=== PATIENT | male | born 1990 | race Caucasian/White ===

== ENCOUNTER → 2022-05-11 13:30 | Outpatient (BNVA) | payer OTHER, SELFPAY | PROVIDERS: Visit Provider Nurse Practitioner | DX: M25.511 Pain in right shoulder (principal) | CPT/HCPCS: 73030 ==

== ENCOUNTER → 2022-05-12 13:46 | Outpatient (BNVA) | payer OTHER, SELFPAY | PROVIDERS: Visit Provider Nurse Practitioner | DX: Z02.83 Encounter for blood-alcohol and blood-drug test (principal); M25.511 Pain in right shoulder | CPT/HCPCS: 80307 ==

== ENCOUNTER 2022-06-02 11:44 | Outpatient (CLI) | payer OTHER, SELFPAY ==
--- NOTE | 2022-06-02 12:30 | MR_ITS ---
WS: [id number] MRI RIGHT SHOULDER HISTORY: S49.90XA - Unspecified injury of shoulder and upper arm, lifting injury 1 month ago. Unable to raise arm above head. COMPARISON: Shoulder radiograph 05/11/2022. TECHNIQUE: Multiplanar sequences of the shoulder joint are submitted. Mild AC joint arthritis. There is a small amount of fluid through the AC joint and mild thickening of the capsule. Small amount of fluid in the inferior most AC joint. Mild encroachment upon the anterio r supraspinatus muscle. 3 mm osteophyte from the distal acromion inferior surface causing mild subacr omial impingement. No os acromion. The biceps tendon remains in normal position. Small amount of marrow edema in the posterior lateral humeral head. No fracture or dislocation. No mu scle atrophy or edema. No tendon tear or tendinopathy involving the rotator cuff muscles. Normal labr um. MR/MR shoulder RT wo con* [id number] IMPRESSION: 1. Mild AC joint sprain. Partial tear suspected involving the inferior most AC ligament. 2. No rotator cuff tear or significant tendinopathy. 3. Focal area of subchondral edema in the posterior lateral humeral head. 4. No labral tear. 5. Biceps tendon in normal position. 6. Mild subacromial impingement by an osteophyte from the distal undersurface of the acromion.
== END 2022-06-02 11:45 | disposition home or self-care (01) ==
PROVIDERS: PCP Nurse Practitioner Family; Visit Provider Nurse Practitioner
DX: S43.51XA Sprain of right acromioclavicular joint, initial encounter (principal); X50.0XXA Overexertion from strenuous movement or load, initial encounter
CPT/HCPCS: 73221

== ENCOUNTER → 2022-06-16 10:57 | Outpatient (BNVA) | payer OTHER, SELFPAY | PROVIDERS: PCP Nurse Practitioner Family; Referring Provider Nurse Practitioner; Visit Provider Physician Assistant | DX: M25.511 Pain in right shoulder (principal) | CPT/HCPCS: 73030 ==

== ENCOUNTER 2023-12-20 19:50 | Emergency (ER) | payer MEDICAID, SELFPAY ==
[2023-12-20 19:53] VITALS: BP 122/69; PULSE 90; RESP 16; TEMP 36.4; O2SAT 97
--- NOTE | 2023-12-20 20:23 | W.ED.EXTPRO ---
HPI - Extremity Problem General: Chief complaint: Extremity Injury, Lower Stated complaint: Right knee Time Seen by Provider: 12/20/23 19:52 Source: patient Mode of arrival: ambulatory Limitations: no limitations History of Present Illness: 33-year-old male who states he was running states he stepped and felt a pop in his right knee he seen at [facility] yesterday and had a CT done of his knee that showed no fracture he states he is concerned he tore ligaments he is not able to ambulate or bear weight on that leg and wants an MRI. Associated symptoms: Deny chest pain, fever(s) or rash Review of Systems Const: Denies: fever(s), chills, body aches or change in appetite Eyes: Denies: blurry vision or eye discomfort ENMT: Denies: throat pain or dental pain Card: Denies: chest pain Resp: Denies: dyspnea GI: Denies: abdominal pain, nausea, vomiting or diarrhea Musc: Reports: extremity pain; Denies: neck pain or back pain Skin/Breast: Denies: rash Neuro: Denies: headache(s) PFSH ED PFSH: Social History Smoking and tobacco/nicotine status: never used tobacco/nicotine Physical Exam Const: COMMON NORMALS: no acute distress, patient oriented x3 and healthy appearing HENMT: COMMON NORMALS: normocephalic and atraumatic HEAD & SCALP: normocephalic and atraumatic Eye: COMMON NORMALS: conjunctivae normal CONJUNCTIVA: Yes conjunctivae normal Neck/C-Spine: COMMON NORMALS: full ROM and supple Chest: COMMONS NORMALS: normal inspection of the chest Resp: COMMON NORMALS: normal respiratory effort Cardio: COMMON NORMALS: regular rate, regular rhythm and No murmurs present (Cardio) RATE: regular rate RHYTHM: regular rhythm Extremity: NARRATIVE EXTREMITY EXAM: Swelling to right knee along with tenderness Neuro: COMMON NORMALS: patient oriented x3, moves all extremities and no focal motor deficits Psych: COMMON NORMALS: mental status grossly normal, Normal thought process present and cooperative THOUGHT PROCESS: Normal thought process present Skin: COMMON NORMALS: no rashes or lesions noted and no wounds GENERAL SKIN EXAM: no rashes or lesions noted Course Vital Signs: Vital signs: Vital Signs Temperature 97.6 F 12/20/23 19:53 Pulse Rate 90 12/20/23 19:53 Respiratory Rate 16 12/20/23 19:53 Blood Pressure 122/69 12/20/23 19:53 Pulse Oximetry 97 12/20/23 19:53 MDM - Extremity (Nontraumatic) Medical Decision Making Patient presents here with a knee sprain he refused x-ray here as he has had a CT he already has a knee brace he refused a knee immobilizer he has crutches he is to be nonweightbearing we will get him follow-up with orthopedics. Patient was requesting MRI I did explain to him that was not able to do an MRI of his knee through the ER that he is to follow-up with orthopedics first. Medical Records I reviewed the patient's medical records. No radiology studies performed this visit Discharge Plan Discharge Patient Disposition: Home Clinical Impression: Knee sprain Condition: Stable Prescriptions: No Action ketorolac 10 mg tablet 10 mg PO TID PRN (Reason: pain) 5 Days Qty: 15 0RF Discharge Orders: Discharge ED (Routine); Ordered 12/20/23 Ordered By: Charles Mccall Referrals: Geronimo Lnog DO [Physician] - 1-3 days Discharge Diet: Advance as tolerated Discharge Activity: Resume usual activity Patient Instructions: Knee Sprain (ED) Coding Level of Care Code ED Computer Systems Security Administrator for Ceci Car
[2023-12-20 20:41] VITALS: PULSE 60; O2SAT 98
--- NOTE | 2023-12-21 07:33 | DCPLANNER ---
Message was sent to ortho (Dr. Long) for a knee sprain on 12/21/23 at 0720. Clinic to contact patient.
== END 2023-12-20 20:42 | disposition home or self-care (01) ==
PROVIDERS: Emergency Provider Emergency Medicine
DX: S83.91XA Sprain of unspecified site of right knee, initial encounter (principal); X50.9XXA Other and unspecified overexertion or strenuous movements or postures, initial encounter; Y93.02 Activity, running
CPT/HCPCS: 99283

== ENCOUNTER 2023-12-25 11:31 | Emergency (ER) | payer MEDICAID, SELFPAY ==
[2023-12-25 11:51] VITALS: BP 127/84; PULSE 84; RESP 16; TEMP 36.7; O2SAT 97; BMI 23.7
--- NOTE | 2023-12-25 12:25 | XRR_ITS ---
PROCEDURE INFORMATION: Exam: XR Right Knee Exam date and time: 12/25/2023 12:46 PM Age: 33 years old Clinical indication: Pain; Knee; Right; Additional info: Injury TECHNIQUE: Imaging protocol: Radiologic exam of the right knee. Views: 3 views. COMPARISON: No relevant prior studies available. FINDINGS: Bones/joints: No significant pathology. Soft tissues: Normal. No joint effusion evident. XR/XR knee RT 3V* [id number] IMPRESSION: No significant pathology.
[2023-12-25 13:22] VITALS: PULSE 82; RESP 14; O2SAT 97
--- NOTE | 2023-12-25 13:33 | W.ED.LOWEXIN ---
HPI - Extremity Injury (Lower) General: Chief Complaint: Extremity Injury, Lower Stated Complaint: right knee pain Time Seen by Provider: 12/25/23 13:21 Source: patient Mode of arrival: ambulatory Limitations: no limitations History of Present Illness: Patient is a 33-year-old male who presents to ED today for evaluation of a right knee injury. Patient states about a week ago he injured the right knee via a planting/pivoting injury. He was subsequently seen at [facility] ED and had a CT scan performed of the knee which did not show any fracture. He was told he most likely had a ligamentous injury and was referred to orthopedics. Patient was then subsequently seen in our emergency department the next day requesting an MRI. Patient currently has an orthopedic visit scheduled for 01/05. Patient is here today again requesting an MRI and refills on his pain medications. complaint: knee injury Onset (ago): day(s) Injury: Right: knee Place: home Severity: moderate Relieving factors: immobilization Exacerbating factors: weight bearing and movement Associated symptoms: Reports no associated symptoms Other symptoms: none Treatments prior to arrival: splint (knee immobilizer) Review of Systems Card: Denies: chest pain Resp: Denies: dyspnea Musc: Reports: joint pain (R knee) and joint swelling (R knee); Denies: neck pain, back pain, extremity pain, extremity swelling, joint redness or joint warmth Neuro: Denies: numbness in extremities or sensory changes [facility] ED PFSH: Social History Smoking and tobacco/nicotine status: never used tobacco/nicotine Physical Exam Const: COMMON NORMALS: no acute distress, average body habitus, patient oriented x3, no limitations, healthy appearing, alert and well nourished Resp: COMMON NORMALS: normal respiratory effort and clear to auscultation bilaterally AUSCULTATION: clear to auscultation bilaterally Cardio: COMMON NORMALS: regular rate and regular rhythm RATE: regular rate RHYTHM: regular rhythm Extremity: COMMON NORMALS: normal to inspection, capillary refill normal, no clubbing, cyanosis or edema, no calf tenderness and no pedal edema GENERAL: Yes normal exam except as noted RIGHT LOWER EXTREMITY: Yes knee joint (TTP medial R knee joint) Right knee: Yes palpation (mild effusion noted) and Yes neurovascular exam (normal) Neuro: COMMON NORMALS: patient oriented x3, moves all extremities, no focal motor deficits and no sensory deficits noted SENSORIUM/ORIENTATION: Yes alert Course Vital Signs: Vital signs: Vital Signs Temperature 98.0 F 12/25/23 11:51 Pulse Rate 82 12/25/23 13:22 Respiratory Rate 14 12/25/23 13:22 Blood Pressure 124/79 12/25/23 13:42 Pulse Oximetry 98 12/25/23 13:42 Oxygen Delivery Me thod Room Air 12/25/23 13:22 MDM - Extremity Injury (Lower) Medical Decision Making XR ordered from triage negative for acute fracture. Knee is already in ROBERT wrap/knee knee immobilizer/patient is utilizing crutches. He already has an orthopedic appointment scheduled for 01/05. Explained yet again we cannot order nonemergent MRIs through the ED. He is requesting refill on pain meds. He got 9 oxycodone from [id number] on 12/19 on date of initial injury and he has one tab left in bottle on today's visit. Will write for hydrocodone that he can continue to use sparingly. Differential Diagnosis Likely ankle sprain and strain and acute internal derangement of knee XR interpretation done by ED provider, pending radiology final review Discharge Plan Discharge Patient Disposition: Home Clinical Impression: Injury of right knee Qualifiers: Encounter type: initial encounter Qualified Code(s): S89.91XA - Unspecified injury of right lower leg, initial encounter Condition: Stable Prescriptions: New hydrocodone-acetaminophen 5-325 mg tablet 1 tab PO Q6H PRN (Reason: pain) Qty: 14 0RF No Action ketorolac 10 mg tablet 10 mg PO TID PRN (Reason: pain) 5 Days Qty: 15 0RF Discharge Orders: Discharge ED (Routine); Ordered 12/25/23 Ordered By: Jaki Johns Patient Instructions: Opioid Safety, Pain Management Activity Restrictions/Additional Instructions: As we discussed please follow-up with orthopedics at your currently scheduled appointment. This is currently scheduled for 01/05 at 9:30AM. Coding Level of Care Code ED Security Rover for Ceci Car
[2023-12-25 13:42] VITALS: BP 124/79; O2SAT 98
== END 2023-12-25 13:43 | disposition home or self-care (01) ==
PROVIDERS: Emergency Provider Physician Assistant
DX: S89.91XA Unspecified injury of right lower leg, initial encounter (principal); M25.461 Effusion, right knee; X50.1XXA Overexertion from prolonged static or awkward postures, initial encounter
CPT/HCPCS: 73562; 99283

== ENCOUNTER → 2024-01-05 09:47 | Outpatient (BNVA) | payer MEDICAID, SELFPAY | PROVIDERS: Visit Provider Nurse Practitioner | DX: M25.561 Pain in right knee; M23.51 Chronic instability of knee, right knee; S83.206A Unspecified tear of unspecified meniscus, current injury, right knee, initial encounter; S89.91XA Unspecified injury of right lower leg, initial encounter; X50.9XXA Other and unspecified overexertion or strenuous movements or postures, initial encounter | CPT/HCPCS: 73560; 73565 ==

== ENCOUNTER 2024-01-13 17:26 | Emergency (ER) | payer MEDICAID, SELFPAY ==
[2024-01-13 17:38] VITALS: BP 132/76; PULSE 101; RESP 19; TEMP 37.5; O2SAT 97; BMI 25.2
--- NOTE | 2024-01-13 17:53 | XRR_ITS ---
PROCEDURE INFORMATION: Exam: XR Chest Exam date and time: 01/13/2024 6:36 PM Age: 33 years old Clinical indication: Cough and fever; Patient HX: Cough; Fever TECHNIQUE: Imaging protocol: Radiologic exam of the chest. Views: 1 view. COMPARISON: CR XR shoulder RT min 2V* [id number] 06/16/2022 10:58 AM FINDINGS: Lungs: Unremarkable. No consolidation. Pleural spaces: Unremarkable. No pleural effusion. No pneumothorax. Heart/Mediastinum: Unremarkable. No cardiomegaly. Bones/joints: Unremarkable. XR/XR chest 1V portable [id number] IMPRESSION: No acute findings.
[2024-01-13 18:35] LABS: Influenza A by IFA negative (Negative); Influenza B by IFA negative (Negative); SARS Covid-2 Antigen negative (Negative)
[2024-01-13 19:00] VITALS: BP 131/77; O2SAT 99
--- NOTE | 2024-01-13 19:12 | W.ED.URI ---
HPI - URI/Sore Throat General: Chief Complaint: Upper Respiratory Infection Stated Complaint: fever, cough Time Seen by Provider: 01/13/24 18:00 Source: patient Mode of arrival: ambulatory Limitations: no limitations History of Present Illness: 33-year-old male states that over the last days had cough congestion body aches and sore throat mild headache. He states he had multiple sick contacts with his family had similar symptoms. Denies any vomiting denies any diarrhea. 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 Social History Smoking and tobacco/nicotine status: never used tobacco/nicotine Physical Exam Const: COMMON NORMALS: no acute distress, patient oriented x3 and healthy appearing HENMT: COMMON NORMALS: normocephalic and atraumatic HEAD & SCALP: normocephalic and atraumatic MOUTH: Normal oral and palatal mucosa present THROAT: posterior oropharynx normal Eye: COMMON NORMALS: conjunctivae normal CONJUNCTIVA: Yes conjunctivae normal Neck/C-Spine: COMMON NORMALS: full ROM and supple Chest: COMMONS NORMALS: normal inspection of the chest and normal palpation of entire chest wall Resp: COMMON NORMALS: normal respiratory effort, No retractions, No use of accessory muscles and clear to auscultation bilaterally AUSCULTATION: clear to auscultation bilaterally Cardio: COMMON NORMALS: regular rate, regular rhythm and No murmurs present (Cardio) RATE: regular rate RHYTHM: regular rhythm Extremity: COMMON NORMALS: normal to inspection and full ROM Neuro: COMMON NORMALS: patient oriented x3, moves all extremities and no focal motor deficits Psych: COMMON NORMALS: mental status grossly normal, Normal thought process present and cooperative THOUGHT PROCESS: Normal thought process present Skin: COMMON NORMALS: no rashes or lesions noted and no wounds GENERAL SKIN EXAM: no rashes or lesions noted Course Vital Signs: Vital signs: Vital Signs Temperature 99.5 F 01/13/24 17:38 Pulse Rate 101 H 01/13/24 17:38 Respiratory Rate 19 H 01/13/24 17:38 Blood Pressure 131/77 01/13/24 19:00 Pulse Oximetry 99 01/13/24 19:00 Oxygen Delivery Me thod Room Air 01/13/24 19:00 MDM - URI/Sore Throat Medical Decision Making Patient presents here with upper respiratory infection likely viral in origin x-ray shows no pneumonia he is well-appearing here we will get a respiratory panel did give him Decadron Toradol he stable for discharge return if worsening he understands agrees to plan Medical Records I reviewed the patient's medical records. Lab Data I reviewed the patient's lab results. Laboratory Results Influenza Type A Ag negative (Negative) 01/13/24 17:45 Influenza Type B Ag negative (Negative) 01/13/24 17:45 SARS-CoV-2 Ag (Rapid) negative (Negative) 01/13/24 17:45 XR interpretation done by ED provider, pending radiology final review ED provider radiology interpretation(s): cxr no acute abnormalities Discharge Plan Discharge Patient Disposition: Home Clinical Impression: Upper respiratory infection Condition: Stable Prescriptions: No Action ketorolac 10 mg tablet 10 mg PO TID PRN (Reason: pain) 5 Days Qty: 15 0RF hydrocodone-acetaminophen 5-325 mg tablet 1 tab PO Q6H PRN (Reason: pain) Qty: 14 0RF Discharge Orders: Discharge ED (Routine); Ordered 01/13/24 Ordered By: Charles Mccall Referrals: Lena Zacarias MD [Primary Care Provider] - Discharge Diet: Advance as tolerated Discharge Activity: Resume usual activity Patient Instructions: Upper Respiratory Infection (ED) Coding Level of Care Code ED Attorney Recruiter for Ceci Car
[2024-01-13] MEDS: dexamethasone 10 mg/mL INJ IM (19:15)
[2024-01-13] MEDS: ketorolac 60 mg/2 mL INJ IM (19:15)
[2024-01-13 19:23] VITALS: BP 138/68; RESP 14
[2024-01-13 23:07] LABS: Adenovirus Not Detected (NOT DETECT); Chlamydia Pneumoniae Not Detected (NOT DETECT); Coronavirus 229E,HKU1,NL63,OC4 Not Detected (NOT DETECT); Human Metapneumovirus Not Detected (NOT DETECT); Human Rhinovirus/Enterovirus Not Detected (NOT DETECT); Influenza A Not Detected (NOT DETECT); Influenza A H1 Not Detected (NOT DETECT); Influenza A H1-2009 Not Detected (NOT DETECT); Influenza A H3 Not Detected (NOT DETECT); Influenza B Detected (NOT DETECT); Mycoplasma Pneumoniae Not Detected (NOT DETECT); Parainfluenza Virus Type 1 Not Detected (NOT DETECT); Parainfluenza Virus Type 2 Not Detected (NOT DETECT); Parainfluenza Virus Type 3 Not Detected (NOT DETECT); Parainfluenza Virus Type 4 Not Detected (NOT DETECT); Respiratory Syncytial Virus A Not Detected (NOT DETECT); Respiratory Syncytial Virus B Not Detected (NOT DETECT); SARS-COV-2 Not Detected (NOT DETECT)
== END 2024-01-13 19:26 | disposition home or self-care (01) ==
PROVIDERS: Emergency Provider Emergency Medicine; PCP Specialist
DX: J06.9 Acute upper respiratory infection, unspecified (principal); Z11.52 Encounter for screening for COVID-19
CPT/HCPCS: 71045; 87426; 87486; 87581; 87633; 87804; 96372; 99284; J1100; J1885

== ENCOUNTER 2024-01-17 08:00 | Emergency (ER) | payer MEDICAID, SELFPAY ==
--- NOTE | 2024-01-17 08:05 | XR_ITS ---
WS: [id number] Examination: XR chest 1V portable [id number] Reason for Exam: dyspnea/cough Date: January 17, 2024 Comparison: January 13, 2024 Findings: The cardiomediastinal silhouette is within normal limits There is no pulmonary congestion. There is no pleural effusion. No dense consolidation is identified. Impression: No acute lung process seen.
[2024-01-17 08:15] VITALS: BP 122/86; PULSE 91; TEMP 37.1; O2SAT 97; BMI 25.2
[2024-01-17 08:32] LABS: Basophils % 0.4 %; Eosinophils % 0.2 %; Hematocrit 46.1 % (37-53); Lymphocytes % 20.4 %; Mean Corpuscular HGB Conc 34.5 g/dL (30-55); Mean Corpuscular Hemoglobin 31.5 pg (27-33); Mean Corpuscular Volume 91.5 fl (82-101); Mean Platelet Volume 9.2 fL (7.4-10.4); Monocytes # 0.7 10^3/uL (0.2-0.9); Monocytes % 12.9 %; Neutrophils # 3.31 10^3/uL (1.8-7.7); Neutrophils % 65.7 %; Nucleated Red Blood Cells % 0 %; Platelet Count 182 10^3/cmm (157-399); Red Blood Count 5.04 10^6/uL (3.85-5.65); Red Cell Distribution Width 11.5 % (12.1-15.1); White Blood Count 5.04 10^3/uL (3.29-11.43)
[2024-01-17 08:50] LABS: Alanine Aminotransferase 37 U/L (0-41); Albumin Level 4.3 g/dL (3.5-5.2); Alkaline Phosphatase 65 U/L (40-130); Anion Gap 14.3 (5-19); Aspartate Amino Transferase 40 U/L (0-40); Blood Urea Nitrogen 7 mg/dL (6-20); Calcium 8.8 mg/dL (8.5-10.5); Carbon Dioxide 26 mmol/L (22-29); Chloride 97 mmol/L (98-107); Globulin 2.7 g/dL (1.3-4.6); Glomerular Filtration Rate 78.1 mL/min (90-130); Glucose 96 mg/dL (65-115); Osmolality Calculated 274 mOsm/kg (285-295); Potassium 4.3 mmol/L (3.5-5.1); Sodium 133 mmol/L (136-145); Total Bilirubin 0.5 mg/dL (0.15-1.2)
[2024-01-17] MEDS: ondansetron 2 mg/ML SDV 2 mL 4 MG IVP (09:21)
[2024-01-17] MEDS: sodium chloride 0.9% 1,000 ML 999 ML IV (09:22)
--- NOTE | 2024-01-17 09:33 | W.ED.URI ---
HPI - URI/Sore Throat General: Chief Complaint: Upper Respiratory Infection Stated Complaint: Fever, N/V , cough Time Seen by Provider: 01/17/24 08:04 Source: patient Mode of arrival: ambulatory History of Present Illness: 33-year-old male presents emergency room with complaints of shortness of breath sinus congestion for the last few days. Had nausea this morning. Minimally productive cough from postnasal drainage was seen a few days ago and was given Toradol and dexamethasone. He states his symptoms are still persisting. He also had a respiratory panel which was negative. This began having some vomiting this morning. MD elicited complaint: cough Onset (ago): day(s) (3) Consistency: constant Description of mucous: clear Able to tolerate fluids by mouth: Yes Exacerbating factors: nothing Associated symptoms: Reports congestion, cough, fever(s), nasal congestion and sinus pain; Deny abdominal pain, change in voice, chills, chest pain, diarrhea, epistaxis, ear or mastoid pain, headache(s), myalgias, nausea, rash, rhinorrhea, short of breath, stiffness, sore throat or vomiting Treatments prior to arrival: none Review of Systems Const: Reports: fever(s); Denies: chills ENMT: Reports: nasal congestion and sinus pain; Denies: ear or mastoid pain or epistaxis Card: Denies: chest pain Resp: Denies: dyspnea GI: Denies: abdominal pain, nausea, vomiting or diarrhea : Denies: dysuria, urinary frequency or urinary urgency Musc: Denies: neck pain or back pain Skin/Breast: Denies: rash Neuro: Denies: headache(s) PFS ED PFSH: Medical History 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 Social History Smoking and tobacco/nicotine status: never used tobacco/nicotine Physical Exam Const: GENERAL APPEARANCE: cooperative and comfortable ORIENTATION/CONSCIOUSNESS: Yes awake, Yes oriented to person, Yes oriented to place and Yes oriented to time HENMT: COMMON NORMALS: normocephalic, atraumatic and hearing grossly normal bilaterally HEAD & SCALP: normocephalic and atraumatic Resp: COMMON NORMALS: normal respiratory effort, No retractions and No use of accessory muscles AUSCULTATION: rhonchi and wheezes Cardio: COMMON NORMALS: regular rate, regular rhythm and No murmurs present (Cardio) RATE: regular rate RHYTHM: regular rhythm GI: COMMON NORMALS: Soft to palpation and No hepatosplenomegaly present AUSCULTATION: Yes normoactive bowel sounds PALPATION: Yes Soft to palpation, No Tenderness to palpation present (GI), No Guarding due to palpation present (GI) and Yes No hepatosplenomegaly present Extremity: COMMON NORMALS: normal to inspection, capillary refill normal, no clubbing, cyanosis or edema, no calf tenderness and no pedal edema Neuro: SENSORIUM/ORIENTATION: Yes oriented to person, Yes oriented to place and Yes oriented to time Skin: COMMON NORMALS: no rashes or lesions noted GENERAL SKIN EXAM: no rashes or lesions noted Course Vital Signs: Vital signs: Vital Signs Temperature 98.7 F 01/17/24 08:15 Pulse Rate 91 01/17/24 08:15 Blood Pressure 122/86 01/17/24 08:15 Pulse Oximetry 97 01/17/24 08:15 Oxygen Delivery Me thod Room Air 01/17/24 08:15 MDM - URI/Sore Throat Medical Decision Making Reviewed patient's chart he had a PCR test done looks like it was done about the time he was being discharged at his last visit and it resulted after he left it was positive for influenza B on the PCR but the influenza B antigen was negative. At the time he presented on the he reported he had symptoms for several days in either event he would not be a candidate for antivirals either then or today. Symptomatic care is appropriate at this time. He does not have any secondary pneumonias on his chest x-rays laboratory tests otherwise look good can use promethazine as needed for nausea and vomiting albuterol for cough congestion Tylenol or Profen for muscle aches and pain. Differential Diagnosis Likely upper respiratory infection, sinusitis, viral infection, bronchitis, influenza and pharyngitis Medical Records I reviewed the patient's medical records. Lab Data I reviewed the patient's lab results. 01/17/24 08:25 01/17/24 08:25 Laboratory Results WBC 5.04 10^3/uL (3.29-11.43) 01/17/24 08:25 RBC 5.04 10^6/uL (3.85-5.65) 01/17/24 08:25 Hgb 15.90 g/dL (11.27-16.99) 01/17/24 08:25 Hct 46.1 % (37-53) 01/17/24 08:25 MCV 91.5 fl (82-101) 01/17/24 08:25 MCH 31.5 pg (27-33) 01/17/24 08:25 MCHC 34.5 g/dL (30-55) 01/17/24 08:25 RDW 11.5 % (12.1-15.1) L 01/17/24 08:25 Plt Count 182 10^3/cmm (157-399) 01/17/24 08:25 MPV 9.2 fL (7.4-10.4) 01/17/24 08:25 Neut % (Auto) 65.7 % 01/17/24 08:25 Lymph % (Auto) 20.4 % 01/17/24 08:25 [place] % (Auto) 12.9 % 01/17/24 08:25 Eos % (Auto) 0.2 % 01/17/24 08:25 Baso % (Auto) 0.4 % 01/17/24 08:25 Neut # (Auto) 3.31 10^3/uL (1.8-7.7) 01/17/24 08:25 Lymph # (Auto) 1.0 10^3/uL (0.8-4.8) 01/17/24 08:25 [place] # (Auto) 0.7 10^3/uL (0.2-0.9) 01/17/24 08:25 Eos # (Auto) 0.0 10^3/uL (0.0-0.8) 01/17/24 08:25 Baso # (Auto) 0.0 10^3/uL (0.0-0.1) 01/17/24 08:25 Nucleated RBC % (auto) 0 % 01/17/24 08:25 Nucleated RBCs # 0.0 /100WBC 01/17/24 08:25 Sodium 133 mmol/L (136-145) L 01/17/24 08:25 Potassium 4.3 mmol/L (3.5-5.1) 01/17/24 08:25 Chloride 97 mmol/L (98-107) L 01/17/24 08:25 Carbon Dioxide 26 mmol/L (22-29) 01/17/24 08:25 Anion Gap 14.3 (5-19) 01/17/24 08:25 BUN 7 mg/dL (6-20) 01/17/24 08:25 Creatinine 1.1 mg/dL (0.7-1.2) 01/17/24 08:25 GFR Calculation 78.1 mL/min (90-130) L 01/17/24 08:25 Glucose 96 mg/dL (65-115) 01/17/24 08:25 Calculated Osmolality 274 mOsm/kg (285-295) L 01/17/24 08:25 Calcium 8.8 mg/dL (8.5-10.5) 01/17/24 08:25 Total Bilirubin 0.5 mg/dL (0.15-1.2) 01/17/24 08:25 AST 40 U/L (0-40) 01/17/24 08:25 ALT 37 U/L (0-41) 01/17/24 08:25 Alkaline Phosphatase 65 U/L (40-130) 01/17/24 08:25 Total Protein 7.0 g/dL (6.6-8.7) 01/17/24 08:25 Albumin 4.3 g/dL (3.5-5.2) 01/17/24 08:25 Globulin 2.7 g/dL (1.3-4.6) 01/17/24 08:25 All radiology interpretation(s) finalized by discharge Discharge Plan Discharge Patient Disposition: Home Clinical Impression: Influenza B Condition: Stable Prescriptions: New promethazine 25 mg tablet 25 mg PO Q6H PRN (Reason: nausea and vomiting) Qty: 20 0RF albuterol sulfate 90 mcg/actuation HFA aerosol inhaler 2 inh INHALATION Q4H PRN (Reason: shortness of breath or wheezing) Qty: 18 0RF No Action ketorolac 10 mg tablet 10 mg PO TID PRN (Reason: pain) 5 Days Qty: 15 0RF hydrocodone-acetaminophen 5-325 mg tablet 1 tab PO Q6H PRN (Reason: pain) Qty: 14 0RF Discharge Orders: Discharge ED (Routine); Ordered 01/17/24 Ordered By: Vivek Perez Referrals: Lena Zacarias MD [Primary Care Provider] - Discharge Diet: Advance as tolerated Discharge Activity: Increase activity as tolerated Patient Instructions: Influenza (ED), Opioid Safety, Pain Management Activity Restrictions/Additional Instructions: Thank you for choosing [facility] for your healthcare needs today. Please realize this is an emergency room and that we are providing you with a medical screening exam and this may not be complete and all inclusive of all the testing and or work up that you may need to determine your ailment or severity of your illness. It is very important that you follow up as instructed or that you return to the Emergency Department should you have concerns or if your condition changes or worsens in any way. You are seen today for respiratory symptoms. You tested positive for influenza B. You are outside the timeframe to take antivirals for the flu. Recommend supportive care Tylenol ibuprofen as needed you can use Phenergan for nausea and vomiting and albuterol for cough. Coding Level of Care Code ED Mailer Apprentice for Ceci Car
== END 2024-01-17 10:08 | disposition home or self-care (01) ==
PROVIDERS: Emergency Provider Family Medicine; PCP Specialist
DX: J10.1 Influenza due to other identified influenza virus with other respiratory manifestations (principal)
CPT/HCPCS: 36415; 71045; 80053; 85025; 96374; 99284; J2405; J7030